=== PATIENT | female | born 1985 | race Caucasian/White ===

== ENCOUNTER → 2024-04-30 09:56 | Outpatient (REF) | payer BC, SELFPAY | LOC: RCS 09:56 | PROVIDERS: ATTENDING PHYSICIAN Nurse Practitioner Adult Health | DX: R00.1 Bradycardia, unspecified (principal); R00.2 Palpitations | CPT/HCPCS: 93225; 93226 ==

== ENCOUNTER → 2024-05-26 16:02 | Outpatient (REF) | payer BC, SELFPAY | LOC: HWRCS 16:02 | PROVIDERS: ATTENDING PHYSICIAN Nurse Practitioner Adult Health | DX: R00.1 Bradycardia, unspecified (principal); R00.2 Palpitations | CPT/HCPCS: 93306 ==